=== PATIENT | female | born 1980 | race Two or more races ===

== ENCOUNTER 2019-04-20 11:59 | Outpatient (CLI) | payer MEDICAID ==
[~2019-04-20] VITALS: Ht 162.6 cm; Wt 80.5 kg
[2019-04-20 12:39] VITALS: BP 119/73
== END 2019-04-20 17:40 | disposition home or self-care (01) ==
LOC: LDOP 11:59
PROVIDERS: ATTEND Student in an Organized Health Care Education/Training Program
DX: O60.03 Preterm labor without delivery, third trimester (principal); Z3A.31 31 weeks gestation of pregnancy
CPT/HCPCS: 59025; 76817; 80307; 81003; 87086; 96372; 99201; J3105; G0463